=== PATIENT | male | born 1990 ===

== ENCOUNTER 2017-07-22 16:40 | Emergency (ER) | payer OTHER ==
[2017-07-22] MEDS ORDERED: TDAP VACCINE 0.5 ML SUS IM ONE ×2 (16:55→17:20)
[2017-07-22 17:38] VITALS: BP 122/78; PULSE 77; RESP 18; TEMP 97.8; O2SAT 100
== END 2017-07-22 17:25 | disposition home or self-care (01) ==
LOC: ED 16:40
DX: S61.219A Laceration without foreign body of unspecified finger without damage to nail, initial encounter (principal); W26.9XXA Contact with unspecified sharp object(s), initial encounter
CPT/HCPCS: 12001; 90471; 90715; 99283; G0168